=== PATIENT | female | born 1990 | race Two or more races ===

== ENCOUNTER 2016-05-31 12:57 | Emergency (ER) | payer MEDICAID ==
--- NOTE | 2016-05-31 14:18 | ER Document Report ---
ED GI/ - General Chief Complaint: Low Back Pain Stated Complaint: LOW BACK PAIN Time seen by provider: 14:13 Mode of Arrival: Ambulatory Information source: Patient Notes: 25-year-old female presents to ED for complaint of lower back pain radiating down her right leg with right lower quadrant abdominal pain today. She states she was recently treated for a UTI with 150 mg of Diflucan with no relief from symptoms. She was also told that she had a ruptured right ovarian cyst, and a left ovarian cyst. TRAVEL OUTSIDE OF THE [place] IN LAST 30 DAYS: No - HPI Patient complains to provider of: Pelvic pain, Other - Low back Onset: Last week Timing/Duration: Intermittent Quality of pain: Sharp Severity at maximum: Severe Severity in ED: Severe Pain Level: 5 Location: RLQ, Low back, Pelvis Vaginal bleeding (Compared to normal period): None LMP: 05/10/2016 Associated symptoms: Radiates to back. denies: Fever, Nausea, Urinary hesitancy , Urinary frequency, Urinary retention, Urinary urgency, Vaginal discharge Exacerbated by: Movement Relieved by: Denies Similar symptoms previously: Yes Recently seen / treated by doctor: Yes - Related Data Allergies/Adverse Reactions: No Known Allergies Allergy (Verified 05/31/16 13:35) Past Medical History - General Information source: Patient - Social History Smoking Status: Current Every Day Smoker Cigarette use (# per day): Yes - 3 cigarettes a Chew tobacco use (# tins/day): No Smoking Education Provided: Yes - less than 2 minutes Frequency of alcohol use: None Drug Abuse: None Occupation: none Lives with: Spouse/Significant other - With child Family History: Reviewed & Not Pertinent Patient has suicidal ideation: No Patient has homicidal ideation: No - Past Medical History Cardiac Medical History: Reports: None Pulmonary Medical History: Reports: None EENT Medical History: Reports: None Neurological Medical History: Reports: None Endocrine Medical History: Reports: None Renal/ Medical History: Reports: Hx Ovarian Cysts Malignancy Medical History: Reports: None GI Medical History: Reports: None Musculoskeltal Medical History: Reports None Skin Medical History: Reports None Psychiatric Medical History: Reports: None Traumatic Medical History: Reports: None Infectious Medical History: Reports: None Past Surgical History: Reports: Hx Section - Immunizations Immunizations up to date: Yes Review of Systems - Review of Systems Constitutional: No symptoms reported EENT: No symptoms reported Cardiovascular: No symptoms reported Respiratory: No symptoms reported Gastrointestinal: Abdominal pain - Right flank lower quadrant and pelvic pain radiate around to the back Genitourinary: No symptoms reported Female Genitourinary: No symptoms reported Musculoskeletal: Back pain - Low back pain bilateral radiating down right leg, Muscle pain Skin: No symptoms reported Hematologic/Lymphatic: No symptoms reported Neurological/Psychological: No symptoms reported -: Yes All other systems reviewed and negative Physical Exam - Vital signs Vitals: Temp Pulse Resp BP Pulse Ox 98.3 F 93 16 146/75 H 99 05/31/16 13:39 05/31/16 13:39 05/31/16 13:39 05/31/16 13:39 05/31/16 13:39 Interpretation: Normal - General General appearance: Appears well, Alert - HEENT Head: Normocephalic, Atraumatic Eyes: Normal Pupils: PERRL - Respiratory Respiratory status: No respiratory distress Chest status: Nontender Breath sounds: Normal Chest palpation: Normal - Cardiovascular Rhythm: Regular Heart sounds: Normal auscultation Murmur: No - Abdominal Inspection: Normal Distension: No distension Bowel sounds: Normal Tenderness: Tender - Mild tenderness to right lower quadrant more pain to the right pelvic Organomegaly: No organomegaly - Back Back: Normal, Tender. No: Deformity/step-off, CVA tenderness, Vertebra tenderness, Scars, Scoliosis, Wounds, Other - Extremities General upper extremity: Normal inspection, Nontender, Normal color, Normal ROM , Normal temperature General lower extremity: Normal inspection, Nontender, Normal color, Normal ROM , Normal temperature, Normal weight bearing. No: Lina's sign - Neurological Neuro grossly intact: Yes Cognition: Normal Orientation: AAOx4 [place] Coma Scale Eye Opening: Spontaneous Qamar Coma Scale Verbal: Oriented [place] Coma Scale Motor: Obeys Commands [place] Coma Scale Total: 15 Speech: Normal Motor strength normal: LUE, RUE, LLE, RLE Sensory: Normal - Psychological Associated symptoms: Normal affect, Normal mood - Skin Skin Temperature: Warm Skin Moisture: Dry Skin Color: Normal Course - Re-evaluation Re-evalutation: 05/31/16 16:24 25-year-old female presented to ED for low back pain radiating down the right leg across the buttocks. The x-rays are negative she also complained of flank pain in her urine is negative. Have discussed use of ibuprofen back exercises any hot and cold packs. We will discharge home with a dispense pack of no code and have her follow-up with her primary doctor for any continued pain or increase in pain. - Vital Signs Vital signs: Temp Pulse Resp BP Pulse Ox 98.3 F 87 18 138/70 H 100 05/31/16 16:55 05/31/16 16:55 05/31/16 16:55 05/31/16 16:55 05/31/16 16:55 - Diagnostic Test Radiology reviewed: Image reviewed, Reports reviewed Discharge - Discharge Clinical Impression: Flank pain Back pain Qualifiers: Back pain location: low back pain Chronicity: unspecified Back pain laterality : bilateral Sciatica presence: with sciatica Sciatica laterality: sciatica of right side Qualified Code(s): M54.41 - Lumbago with sciatica, right side Condition: Stable Disposition: HOME, SELF-CARE Instructions: Stretching Exercises for the Back ([facility]), Family Physicians / Practices Additional Instructions: LOW BACK PAIN: Three out of every four people will have an episode of disabling back pain during their lifetime. Most commonly the pain is due to straining of the muscles and ligaments in the low back. Usual treatment includes: (1) Rest on a firm surface. Avoid lying on your stomach. (2) Ice pack the painful area. After a few days, gentle heat may be used intermittently to relax the area, or ice packs can be continued. (3) Medication may be needed -- muscle relaxers and antiinflammatory medicines are commonly used. (4) As the back improves, exercises are prescribed to strengthen the back and abdominal muscles. Your doctor will advise you on the proper care for your back at each stage in your recovery. You may be better in a few days -- or healing may take several weeks. If new symptoms of a "herniated disc" (radiation of pain, numbness, or tingling down the back of the leg or weakness in the leg) occur, you should be re-examined. Further testing may be necessary. Flank Pain We weren't able to prove an exact cause for your flank pain. Pain in the flank can be caused by a muscle strain or spasm. Sometimes a kidney stone causes pain, but can't be found on our tests. Infection in the kidney should be evident on a urine test. Early shingles can occasionally cause flank pain, without the rash that proves the diagnosis. On rare occasions, disease of the pancreas, aorta, spleen, or colon can create pain in the flank. At this time, there's no evidence of a dangerous condition, and it seems safe for you to be at home. If the pain goes away and does not come back, no further testing will be needed. If pain persists, or becomes more severe, we may need to repeat some tests or order additional new testing. Blood in the urine, urgency to urinate frequently, and pain that radiates to the groin can indicate a kidney stone. Fever may mean that the pain is due to infection, either of the kidney or the colon (diverticulitis). If your pain is early shingles, you should develop an eruption of blisters in the painful area within a few days. Call the doctor or return if you have pain that is spreading or becoming more severe, pain that does not resolve with time, fever, or any other new symptoms. ORAL NARCOTIC MEDICATION: You have been given a dispense pack for pain control. This medication is a narcotic. It's best taken with food, as nausea can result if taken on an empty stomach. Don't operate machinery or drive within six hours of taking this medication. Do not combine this medicine with alcohol, or with any medication which can cause sedation (such as cold tablets or sleeping pills) unless you get permission from the physician. Narcotics tend to cause constipation. If possible, drink plenty of fluids and eat a diet high in fiber and fruits. Please be aware that prescription narcotics also have the potential for abuse. People become addicted to these medications because of the general sense of wellbeing that they induce. This feeling along with a significant reduction in tension, anxiety, and aggression provides a stimulating seductive quality to these drugs. Once your pain is under control, we encourage you to discard your unused narcotics. Ibuprofen Ibuprofen is an excellent, safe drug for pain control. In addition, it has potent antiinflammatory effects which are beneficial, especially in the treatment of injuries, arthritis, or tendonitis. It's best to take ibuprofen with food. Persons with ulcer disease or allergy to aspirin should notify their physician of this before taking ibuprofen. Take the medication exactly as prescribed. Don't take additional doses unless instructed to do so by your doctor. If you develop wheezing, shortness of breath, hives, faintness, stomach pain, vomiting, or dark black stools, return for re-evaluation at once. ICE PACKS: Apply ice packs frequently against the painful area. Many different schedules are recommended, such as "20 minutes on, 20 minutes off" or "one hour ice, two hours rest." If you need to work, you may need to go longer between ice treatments. You should plan to have the area ice packed AT LEAST one fourth of the time. The ice should be applied over the wrap, tape, or splint, or over a layer of cloth -- not directly against the skin. Some ice bags have a built-in cloth and can be put directly on the skin. WARM PACKS: After approximately two days, apply gentle heat (such as a heating pad or hot water bottle) for about 20 to 30 minutes about every two hours -- at least four times daily. Warmth and elevation will help you make a more rapid recovery , and will ease the pain considerably. Do not use HOT heat, and never apply heat for longer than 30 minutes. The continuous heat can invisibly damage skin and muscles -- even when no burn is seen on the surface. Damaged muscles can make you MORE sore. FOLLOW-UP CARE: If you have been referred to a physician for follow-up care, call the physician s office for an appointment as you were instructed or within the next two days. If you experience worsening or a significant change in your symptoms, notify the physician immediately or return to the Emergency Department at any time for re-evaluation. Forms: Elevated Blood Pressure, Smoking Cessation Education
[2016-05-31 15:06] LABS: APPEARANCE,URINE SLIGHTLY-CLOUDY; BILIRUBIN,URINE NEGATIVE (NEGATIVE); GLUCOSE, URINE NEGATIVE (NEGATIVE); KETONES,URINE NEGATIVE (NEGATIVE); LEUKOCYTE ESTERASE,URINE NEGATIVE (NEGATIVE); NITRITE,URINE NEGATIVE (NEGATIVE); PROTEIN,URINE NEGATIVE (NEGATIVE); URINE SPECIFIC GRAVITY 1.014; UROBILINOGEN,URINE NEGATIVE mg/dL (<2.0)
[2016-05-31] MEDS ORDERED: HYDROCODONE/ACETAMINOPHEN 5-325 MG 6 TAB/DSPK PO PRN (16:28)
[2016-05-31] MEDS ORDERED: DEXAMETHASONE SOD PHOS INJ 10 MG/1 ML VIAL IM ONE (16:29)
[2016-05-31] MEDS ORDERED: KETOROLAC TROMETHAMINE 60 MG/2 ML SDV IM ONE (16:29)
[2016-05-31 18:56] VITALS: BP 138/70
== END 2016-05-31 16:58 | disposition home or self-care (01) ==
LOC: ER 12:57
DX: M54.41 Lumbago with sciatica, right side (principal); R10.9 Unspecified abdominal pain; M54.5 Low back pain; M79.604 Pain in right leg; R10.31 Right lower quadrant pain; R10.2 Pelvic and perineal pain; F17.210 Nicotine dependence, cigarettes, uncomplicated
CPT/HCPCS: 99284; 96372; 81025; 81001; 72110; J1885; J1100

== ENCOUNTER 2017-03-02 11:33 | Emergency (ER) | payer MEDICAID ==
--- NOTE | 2017-03-02 12:55 | ER Document Report ---
ED Flu Like - General Chief Complaint: Flu Symptoms Stated Complaint: FLU LIKE SYMPTOMS Time Seen by Provider: 03/02/17 12:39 Notes: flu like symptoms x 2 days TRAVEL OUTSIDE OF THE [place] IN LAST 30 DAYS: No - HPI Onset: Yesterday Timing/Duration: Sudden Quality of pain: [place] exposure: No Associated symptoms: Body/muscle aches, Chills, Nonproductive cough, Fever Similar symptoms previously: No - Related Data Allergies/Adverse Reactions: No Known Allergies Allergy (Verified 03/02/17 11:36) Past Medical History - General Information source: Patient - Social History Smoking Status: Current Every Day Smoker Chew tobacco use (# tins/day): No Frequency of alcohol use: None Drug Abuse: None Lives with: Family Family History: Reviewed & Not Pertinent Patient has suicidal ideation: No Patient has homicidal ideation: No - Medical History Medical History: Negative Renal/ Medical History: Reports: Hx Ovarian Cysts. Denies: Hx Peritoneal Dialysis Past Surgical History: Reports: Hx Section - Immunizations Immunizations up to date: Yes Hx Diphtheria, Pertussis, Tetanus Vaccination: No Review of Systems - Review of Systems Constitutional: No symptoms reported EENT: No symptoms reported Cardiovascular: No symptoms reported Respiratory: No symptoms reported Gastrointestinal: No symptoms reported Genitourinary: No symptoms reported Female Genitourinary: No symptoms reported Musculoskeletal: No symptoms reported Skin: No symptoms reported Hematologic/Lymphatic: No symptoms reported Neurological/Psychological: No symptoms reported Physical Exam - Vital signs Interpretation: Tachycardic, Febrile - General General appearance: Alert In distress: None - mildly ill looking - HEENT Head: Normocephalic, Atraumatic Eyes: Normal Pupils: PERRL - Respiratory Respiratory status: No respiratory distress Chest status: Nontender Breath sounds: Normal Chest palpation: Normal - Cardiovascular Rhythm: Regular Heart sounds: Normal auscultation Murmur: No - Abdominal Inspection: Normal Distension: No distension Bowel sounds: Normal Tenderness: Nontender Organomegaly: No organomegaly - Back Back: Normal, Nontender - Extremities General upper extremity: Normal inspection, Nontender, Normal color, Normal ROM , Normal temperature General lower extremity: Normal inspection, Nontender, Normal color, Normal ROM , Normal temperature, Normal weight bearing. No: Lina's sign - Neurological Neuro grossly intact: Yes Cognition: Normal Orientation: AAOx4 [place] Coma Scale Eye Opening: Spontaneous Qamar Coma Scale Verbal: Oriented Q[place] Coma Scale Motor: Obeys Commands [place] Coma Scale Total: 15 Speech: Normal Motor strength normal: LUE, RUE, LLE, RLE Sensory: Normal - Psychological Associated symptoms: Normal affect, Normal mood - Skin Skin Temperature: Warm Skin Moisture: Dry Skin Color: Normal Course - Re-evaluation Re-evalutation: 03/02/17 12:51 H&P c/w flu like illness. no co-morbidities. no s/s sepsis. no respirtory distress. pt stable for discharge Discharge - Discharge Clinical Impression: Flu-like symptoms Condition: Stable Disposition: HOME, SELF-CARE Instructions: Influenza ([facility]) [id number], Acetaminophen Additional Instructions: rest and hydrate social isolation while sick good hand hygiene tamiflu as prescribed follow up with primary care if symptoms persist return to ER for any worsening Prescriptions: Oseltamivir Phosphate [Tamiflu] 75 mg PO BID #10 capsule Forms: Return to Work
[2017-03-02 13:11] VITALS: BP 126/74
== END 2017-03-02 13:11 | disposition home or self-care (01) ==
LOC: ER 11:33
DX: M79.1 Myalgia (principal); R50.9 Fever, unspecified; R05 Cough; F17.200 Nicotine dependence, unspecified, uncomplicated
CPT/HCPCS: 99283

== ENCOUNTER 2017-03-04 08:45 | Emergency (ER) | payer MEDICAID ==
--- NOTE | 2017-03-04 10:06 | RADIOLOGY REPORT (SQ) ---
EXAM DESCRIPTION: CHEST PA/LAT COMPLETED DATE/TIME: 03/04/2017 9:58 am REASON FOR STUDY: cough fever COMPARISON: None. EXAM PARAMETERS: NUMBER OF VIEWS: two views TECHNIQUE: Digital Frontal and Lateral radiographic views of the chest acquired. RADIATION DOSE: NA LIMITATIONS: none FINDINGS: LUNGS AND PLEURA: No opacities, masses or pneumothorax. No pleural effusion. MEDIASTINUM AND HILAR STRUCTURES: No masses or contour abnormalities. HEART AND VASCULAR STRUCTURES: Heart normal size. No evidence for failure. BONES: No acute findings. HARDWARE: None in the chest. OTHER: No other significant finding. IMPRESSION: NO SIGNIFICANT RADIOGRAPHIC FINDING IN THE CHEST. TECHNICAL DOCUMENTATION: JOB ID: [id number] [employer]- All Rights Reserved
--- NOTE | 2017-03-04 10:44 | ER Document Report ---
ED Pediatric Illness - General Chief Complaint: Congestion Stated Complaint: CONGESTION Time Seen by Provider: 03/04/17 09:18 Mode of Arrival: Ambulatory Information source: Patient TRAVEL OUTSIDE OF THE [place] IN LAST 30 DAYS: No - Related Data Allergies/Adverse Reactions: No Known Allergies Allergy (Verified 03/04/17 08:45) Past Medical History - Social History Smoking Status: Never Smoker Chew tobacco use (# tins/day): No Frequency of alcohol use: None Drug Abuse: None Family History: Reviewed & Not Pertinent Patient has suicidal ideation: No Patient has homicidal ideation: No Renal/ Medical History: Reports: Hx Ovarian Cysts. Denies: Hx Peritoneal Dialysis Past Surgical History: Reports: Hx Section - Immunizations Immunizations up to date: Yes Hx Diphtheria, Pertussis, Tetanus Vaccination: No Physical Exam - Vital signs Vitals: Temp Pulse Resp BP Pulse Ox 98.4 F 97 16 119/76 98 03/04/17 08:56 03/04/17 08:56 03/04/17 08:56 03/04/17 08:56 03/04/17 08:56 Course - Vital Signs Vital signs: Temp Pulse Resp BP Pulse Ox 98.4 F 97 16 119/76 98 03/04/17 08:56 03/04/17 08:56 03/04/17 08:56 03/04/17 08:56 03/04/17 08:56
[2017-03-04 10:45] LABS: A TYPE INFLUENZA AG NEGATIVE (NEGATIVE); B INFLUENZA AG NEGATIVE (NEGATIVE)
--- NOTE | 2017-03-04 10:52 | ER Document Report ---
ED Flu Like - General Chief Complaint: Congestion Stated Complaint: CONGESTION Time Seen by Provider: 03/04/17 09:18 Mode of Arrival: Ambulatory Information source: Patient Notes: 26-year-old female presented to ED for cough and cold flu symptoms for a week. She states 2 days ago she was told she had the flu but she was not tested. She states she has had a lot of congestion and nasal drainage. She states she felt like she had the temperature but has not taken her temperature. TRAVEL OUTSIDE OF THE [place] IN LAST 30 DAYS: No - HPI Onset: Last week Timing/Duration: Intermittent Quality of pain: Achy Severity: Moderate Pain Level: 3 CO exposure: No Associated symptoms: Body/muscle aches, Chills, Nonproductive cough, Fever, Rhinnorhea, Sinus pain/drainage, Sore throat Similar symptoms previously: Yes Recently seen / treated by doctor: Yes - Related Data Allergies/Adverse Reactions: No Known Allergies Allergy (Verified 03/04/17 08:45) Past Medical History - General Information source: Patient - Social History Smoking Status: Current Every Day Smoker Cigarette use (# per day): Yes - 2 cigarettes a day Chew tobacco use (# tins/day): No Smoking Education Provided: Yes - 4 minutes Frequency of alcohol use: None Drug Abuse: None Occupation: [employer] Lives with: Family Family History: Arthritis, CAD, DM, Hyperlipidemia, Hypertension. denies: COPD , CVA, Malignancy, Thyroid Disfunction Patient has suicidal ideation: No Patient has homicidal ideation: No - Past Medical History Cardiac Medical History: Reports: None Pulmonary Medical History: Reports: None EENT Medical History: Reports: None Neurological Medical History: Reports: None Endocrine Medical History: Reports: None Renal/ Medical History: Reports: Hx Ovarian Cysts Malignancy Medical History: Reports: None GI Medical History: Reports: None Musculoskeltal Medical History: Reports None Skin Medical History: Reports None Psychiatric Medical History: Reports: None Traumatic Medical History: Reports: None Infectious Medical History: Reports: None Past Surgical History: Reports: Hx Section - Immunizations Immunizations up to date: Yes Hx Diphtheria, Pertussis, Tetanus Vaccination: No Review of Systems - Review of Systems Constitutional: Fever, Recent illness EENT: Nose congestion, Nose discharge, Sinus pressure, Sinus discharge, Throat pain Cardiovascular: No symptoms reported Respiratory: Cough Gastrointestinal: No symptoms reported Genitourinary: No symptoms reported Female Genitourinary: No symptoms reported Musculoskeletal: No symptoms reported Skin: No symptoms reported Hematologic/Lymphatic: No symptoms reported Neurological/Psychological: No symptoms reported -: Yes All other systems reviewed and negative Physical Exam - Vital signs Vitals: Temp Pulse Resp BP Pulse Ox 98.4 F 97 16 119/76 98 03/04/17 08:56 03/04/17 08:56 03/04/17 08:56 03/04/17 08:56 03/04/17 08:56 Interpretation: Normal - General General appearance: Appears well, Alert - HEENT Head: Normocephalic, Atraumatic Eyes: Normal Pupils: PERRL Ears: Normal External canal: Normal Tympanic membrane: Normal Sinus: Normal Nasal: Purulent discharge, Swelling Mouth/Lips: Normal Mucous membranes: Normal Pharynx: Post nasal drainage Neck: Normal - Respiratory Respiratory status: No respiratory distress Chest status: Nontender Breath sounds: Nonproductive cough Chest palpation: Normal - Cardiovascular Rhythm: Regular Heart sounds: Normal auscultation Murmur: No - Abdominal Inspection: Normal Distension: No distension Bowel sounds: Normal Tenderness: Nontender Organomegaly: No organomegaly - Back Back: Normal, Nontender - Extremities General upper extremity: Normal inspection, Nontender, Normal color, Normal ROM , Normal temperature General lower extremity: Normal inspection, Nontender, Normal color, Normal ROM , Normal temperature, Normal weight bearing. No: Lina's sign - Neurological Neuro grossly intact: Yes Cognition: Normal Orientation: AAOx4 [place] Coma Scale Eye Opening: Spontaneous [place] Coma Scale Verbal: Oriented [place] Coma Scale Motor: Obeys Commands [place] Coma Scale Total: 15 Speech: Normal Motor strength normal: LUE, RUE, LLE, RLE Sensory: Normal - Psychological Associated symptoms: Normal affect, Normal mood - Skin Skin Temperature: Warm Skin Moisture: Dry Skin Color: Normal Course - Re-evaluation Re-evalutation: 03/04/17 11:11 Assessment consistent with an upper respiratory infection. Chest x-ray and flu swabs are negative. Patient was discharged home with instructions for an upper respiratory infection. - Vital Signs Vital signs: Temp Pulse Resp BP Pulse Ox 98.6 F 66 16 113/71 98 03/04/17 11:26 03/04/17 11:26 03/04/17 11:26 03/04/17 11:26 03/04/17 11:26 Discharge - Discharge Clinical Impression: Flu-like symptoms Condition: Stable Disposition: HOME, SELF-CARE Instructions: Family Physicians / Practices Additional Instructions: UPPER RESPIRATORY ILLNESS: You have a viral infection of the respiratory passages -- a "cold." This common infection causes nasal congestion, drainage, and often sore throat and cough. It is highly contagious. The disease usually lasts about 10 to 14 days. There is no "cure" for the viral infection -- it must run its course. If there is a complication, such as bacterial infection in the nose, sinuses, middle ear, or bronchial tubes, antibiotics may be required. The antibiotics won't affect the virus. Drink plenty of fluids. A humidifier may help. An expectorant medication or decongestant may make you more comfortable. Use acetaminophen or ibuprofen for fever or aches. See the doctor if fever persists over two days, if there is any significant worsening of your symptoms, or if you simply fail to improve as expected. DECONGESTANT MEDICATION: A decongestant medicine has been prescribed. Often this medicine is combined in the same tablet with an antihistamine or expectorant. This type of medicine is helpful in treating a bad cold or sinus condition, as well as in treatment of the nasal congestion of hay fever. It is not of much benefit for lung infections. Decongestant medicines are related to stimulants. They can cause an increase in blood pressure and heart rate. Persons with heart disease and high blood pressure should not take decongestants without discussing this with the physician. If you develop palpitations, chest pain, headache, or tremors, stop the medicine and consult your physician. Viral Syndrome The physician has diagnosed a viral infection. Viruses not only cause "colds," but can cause many different symptoms including generalized aching, fever, headache, cough, diarrhea, nausea, vomiting, and fatigue. The treatment, for the most part, is simply relief of symptoms. This means that antibiotics are usually not given. Rest, fluids, pain medications and, occasionally, medication for the specific symptoms that are most bothersome will be prescribed. Use good handwashing to avoid passing the virus to others. Shared toys should be cleaned with disinfectant. Clean the toilets, sinks, and counter surfaces in bathrooms. Launder clothing in hot water. Contact the physician if you develop any new or unusual symptoms such as severe headache, stiff neck, high fever, chest pain, productive cough, or shortness of breath. You should be rechecked if you don't see marked improvement within seven to 10 days. COUGH-SUPPRESSANT & EXPECTORANT MEDICATION: You are to use a cough medication as needed for relief of symptoms. This medicine is a combination of an expectorant (to make the mucous thinner and more easily "coughed up") and a cough suppressant (to reduce the frequency of coughing). The cough-suppressant medicine is related to narcotics. You may experience mild nausea and sleepiness. Some patients who are very sensitive to narcotics may have stomach pain from this medicine. Taking the medicine with food reduces these side effects. Do not drive or work with machinery until you know how this medicine affects you. The expectorant should have no side effects. Iodine-containing expectorants (such as organidin) should not be taken by persons with active thyroid disease unless approved by your doctor. Call the doctor if you develop shortness of breath, hives, rash, itching, lightheadedness, or severe nausea and vomiting. USE OF ACETAMINOPHEN (Tylenol): Acetaminophen may be taken for pain relief or fever control. It's much safer than aspirin, offering a wider range of "safe" dosages. It is safe during . Some brand names are Tylenol, Panadol, Datril, Anacin 3, Tempra, and Liquiprin. Acetaminophen can be repeated every four hours. The following are maximum recommended dosages: >89 pounds or adults 650 mg to 900 mg Acetaminophen can be repeated every four hours. Maximum dose not to exceed 4000 mg a day. SMOKING: If you smoke, you should stop smoking. The tar and chemicals in cigarette smoke are harmful. Smoking has been shown to cause: emphysema chronic bronchitis lung cancer mouth and throat cancer stomach and pancreas cancer premature aging defects In addition, smoking increases ear and lung infections in children of smokers. FOLLOW-UP CARE: If you have been referred to a physician for follow-up care, call the physician s office for an appointment as you were instructed or within the next two days. If you experience worsening or a significant change in your symptoms, notify the physician immediately or return to the Emergency Department at any time for re-evaluation. Prescriptions: Ondansetron [Zofran Odt 4 mg Tablet] 1 tab PO Q6H #15 tab.rapdis Forms: Smoking Cessation Education, Return to Work
[2017-03-04 11:27] VITALS: BP 113/71
== END 2017-03-04 11:29 | disposition home or self-care (01) ==
LOC: ER 08:45
DX: R09.81 Nasal congestion (principal); R09.89 Other specified symptoms and signs involving the circulatory and respiratory systems; F17.210 Nicotine dependence, cigarettes, uncomplicated
CPT/HCPCS: 71046; 87804; 99283

== ENCOUNTER 2017-03-14 17:19 | Emergency (ER) | payer MEDICAID ==
--- NOTE | 2017-03-14 18:16 | ER Document Report ---
ED Medical Screen (RME) - General Chief Complaint: Abdominal Pain Stated Complaint: BACK/ABDOMINAL PAIN Time Seen by Provider: 03/14/17 18:10 TRAVEL OUTSIDE OF THE [place] IN LAST 30 DAYS: No - HPI Notes: 03/14/17 18:11 Patient is a 26-year-old female with no significant past medical history presents ED complaining of right lower quadrant abdominal pain 5 days. Patient states that the pain does not radiate and has been relatively steady over the last 5 days with intermittent periods of increased pain. Patient states that on occasion she will have some pain in the left lower quadrant, but is primarily to the right. Patient has not noticed any worsening pain with walking or jumping. Patient has had intermittent nausea without any vomiting. She still eating and drinking without any difficulties. She is urinating normally and having normal bowel movements. Patient states that she also does have associated right lower back pain that does not radiate around to her groin. patient is not aware of any injury or recent trauma. She denies any injections to her lower back or IV drug use. Pt has also had white vaginal discharge x months. Patient denies any drug allergies. Denies any headache, fever, neck pain, URI, sore throat, chest pain, palpitations, syncope, cough, shortness of breath, wheeze, dyspnea, vomiting/diarrhea, urinary retention, dysuria, hematuria, loss of control of bowel or bladder, numbness/tingling, saddle anesthesia, muscle paralysis/weakness, or rash. Pt was eval'd today by her PCM who sent her to the ED for evaluation. Pt has remained NPO since breakfast this morning. I have treated and performed a rapid initial assessment of this patient. A comprehensive ED assessment and evaluation of the patient, analysis of test results and completion of medical decision making process will be conducted by additional ED providers. 03/14/17 18:16 - Related Data Allergies/Adverse Reactions: No Known Allergies Allergy (Verified 03/14/17 17:22) Past Medical History Renal/ Medical History: Reports: Hx Ovarian Cysts. Denies: Hx Peritoneal Dialysis Past Surgical History: Reports: Hx Section - Immunizations Immunizations up to date: Yes Hx Diphtheria, Pertussis, Tetanus Vaccination: No Physical Exam - Vital signs Vitals: Temp Pulse Resp BP Pulse Ox 98.7 F 90 18 124/71 100 03/14/17 17:26 03/14/17 17:26 03/14/17 17:26 03/14/17 17:26 03/14/17 17:26 - Respiratory Respiratory status: No respiratory distress Breath sounds: Normal - Cardiovascular Rhythm: Regular Heart sounds: Normal auscultation - Abdominal Inspection: Normal Distension: No distension Bowel sounds: Normal Tenderness: Tender - RLQ Course - Vital Signs Vital signs: Temp Pulse Resp BP Pulse Ox 98.7 F 90 18 124/71 100 03/14/17 17:26 03/14/17 17:26 03/14/17 17:26 03/14/17 17:26 03/14/17 17:26
[2017-03-14 20:26] LABS: APPEARANCE,URINE SLIGHTLY-CLOUDY; BILIRUBIN,URINE NEGATIVE (NEGATIVE); COLOR,URINE YELLOW; GLUCOSE, URINE NEGATIVE (NEGATIVE); KETONES,URINE NEGATIVE (NEGATIVE); LEUKOCYTE ESTERASE,URINE TRACE (NEGATIVE); NITRITE,URINE NEGATIVE (NEGATIVE); PROTEIN,URINE NEGATIVE (NEGATIVE); URINE SPECIFIC GRAVITY 1.017; UROBILINOGEN,URINE NEGATIVE mg/dL (<2.0)
[2017-03-14 20:26] LABS: ABSOLUTE BASOPHILS # (AUTO) 0.1 10^3/uL (0.0-0.2); ABSOLUTE EOSINOPHILS # (AUTO) 0.1 10^3/uL (0.0-0.6); ABSOLUTE LYMPHOCYTES (AUTO) 1.8 10^3/uL (0.5-4.7); ABSOLUTE MONOCYTES (AUTO) 0.5 10^3/uL (0.1-1.4); ABSOLUTE NEUT (AUTO) 5.9 10^3/uL (1.7-8.2); BASOPHILS % (AUTO) 0.8 % (0-2); HEMOGLOBIN 14.4 g/dL (12.0-15.5); LYMPHOCYTES % (AUTO) 22.1 % (13-45); MEAN CORPUSCULAR HEMOGLOBIN 30.1 pg (27.0-33.4); MEAN CORPUSCULAR HGB CONC 34.2 g/dL (32.0-36.0); MEAN CORPUSCULAR VOLUME 88 fl (80-97); MONOCYTES % (AUTO) 5.5 % (3-13); PLATELET COUNT 560 10^3/uL (150-450); RED BLOOD COUNT 4.78 10^6/uL (3.72-5.28); RED CELL DISTRIBUTION WIDTH 14.1 % (11.5-14.0); SEGMENTED NEUTROPHILS % (AUTO) 70.6 % (42-78); TOTAL CELLS COUNTED % (AUTO) 100 %; WHITE BLOOD COUNT 8.3 10^3/uL (4.0-10.5)
[2017-03-14 20:44] LABS: ALANINE AMINOTRANSFERASE 30 U/L (9-52); ALBUMIN 4.6 g/dL (3.5-5.0); ALKALINE PHOSPHATASE 57 U/L (38-126); ANION GAP 10 (5-19); ASPARTATE AMINO TRANSFERASE 25 U/L (14-36); BILIRUBIN,DIRECT 0.1 mg/dL (0.0-0.4); BILIRUBIN,TOTAL 0.5 mg/dL (0.2-1.3); BLOOD UREA NITROGEN 12 mg/dL (7-20); CALCIUM 10.2 mg/dL (8.4-10.2); CARBON DIOXIDE 23 mmol/L (22-30); CHLORIDE 106 mmol/L (98-107); GLUCOSE 77 mg/dL (75-110); POTASSIUM 4.6 mmol/L (3.6-5.0); SODIUM 139.4 mmol/L (137-145); TOTAL PROTEIN 7.3 g/dL (6.3-8.2)
[2017-03-15] MEDS ORDERED: CEFTRIAXONE INJ 250 MG VIAL IV ONE (00:06)
[2017-03-15] MEDS ORDERED: KETOROLAC TROMETHAMINE 60 MG/2 ML SDV IV ONE (00:06)
[2017-03-15] MEDS ORDERED: AZITHROMYCIN 250 MG TABLET PO ONE (00:06)
--- NOTE | 2017-03-15 00:10 | ER Document Report ---
ED GI/ - General Chief Complaint: Abdominal Pain Stated Complaint: BACK/ABDOMINAL PAIN Time Seen by Provider: 03/14/17 18:10 Mode of Arrival: Ambulatory Information source: Patient TRAVEL OUTSIDE OF THE [place] IN LAST 30 DAYS: No - HPI Patient complains to provider of: Abdominal pain, Vaginal discharge Onset: Last week Notes: 03/15/17 00:08 Patient arrives with complaints of right-sided abdominal pain and low back pain that started approximately 5 days ago. Pain has been constant. It seems to be getting somewhat worse. Nothing in particular seems to make the pain better or worse. The patient's had nausea but denies any vomiting or diarrhea. She denies any dysuria or hematuria. She is complaining of some vaginal discharge. She states her last normal menstrual period was February 04. She denies any flank pain. She denies any chest pain or shortness of breath. No fevers. No rash. No headache, blurred vision, numbness tingling or weakness. She had a prior in the past, she denies any other abdominal surgeries. She denies any headache, blurred vision, numbness, tingling, weakness. She denies any other complaints at this time. - Related Data Allergies/Adverse Reactions: No Known Allergies Allergy (Verified 03/14/17 17:22) Past Medical History - Social History Smoking Status: Unknown if Ever Smoked Family History: Arthritis, CAD, DM, Hyperlipidemia, Hypertension. denies: COPD , CVA, Malignancy, Thyroid Disfunction Renal/ Medical History: Reports: Hx Ovarian Cysts. Denies: Hx Peritoneal Dialysis Past Surgical History: Reports: Hx Section - Immunizations Immunizations up to date: Yes Hx Diphtheria, Pertussis, Tetanus Vaccination: No Review of Systems - Review of Systems -: Yes All other systems reviewed and negative Physical Exam - Vital signs Vitals: Temp Pulse Resp BP Pulse Ox 98.7 F 90 18 124/71 100 03/14/17 17:26 03/14/17 17:26 03/14/17 17:26 03/14/17 17:26 03/14/17 17:26 - Notes Notes: GENERAL: alert, cooperative, nontoxic, no distress. HEAD: normocephalic, atraumatic EYES: conjunctiva pink without discharge, no external redness or swelling. EARS: no external swelling, no external redness NOSE: atraumatic, no external swelling MOUTH/THROAT: mucous membranes moist and pink, posterior pharynx without erythema, swelling, exudate. No trismus or drooling. NECK: soft, supple, full range of motion, no meningismus. CHEST: no distress, lungs clear and equal throughout. No wheezing, rales, rhonchi. CARDIAC: regular rate and rhythm, no murmur, normal capillary refill, normal pulses. No peripheral edema noted. ABDOMEN: Soft, mild tenderness palpation of the lower abdomen. No rebound tenderness or guarding. BACK: full range of motion, no CVA tenderness. EXTREMITIES: full range of motion of all extremities. No redness, no swelling. NEURO: alert and oriented x 3, no focal deficits, full range of motion of all extremities. PYSCH: appropriate mood, affect. Patient is cooperative. SKIN: pink, warm, dry, no rash. : Performed with female nurse at the bedside. No external lesions noted. Cervix is closed. Small amount of white vaginal discharge is present. No cervical motion tenderness. Minimal right and left adnexal tenderness on bimanual exam with no mass. Course - Re-evaluation Re-evalutation: 03/15/17 01:56 Patient is nontoxic appearing with stable vitals. The patient arrives with 5 days of right-sided abdominal pain radiating into her back. She is a benign abdominal exam with minimal tenderness to palpation no guarding or rebound tenderness. She has had no fever. She is afebrile here. Her white blood cell count is normal. Pelvic exam shows some mild adnexal tenderness bilaterally with no purulent drainage from the cervix and no cervical motion tenderness. Patient was treated for gonorrhea and chlamydia here in the emergency department. Those cultures are still pending. Wet prep shows possible actual vaginosis which I will treat her with Flagyl for. CT with IV contrast of the abdomen and pelvis shows metallic foreign body within the appendix. There is no dilation of the appendix or inflammation around the appendix concerning for acute appendicitis. I discussed this with the surgeon habitat conservation planner Dr. Olaery, he was given all the information believes that it is fine for this patient to follow-up as an outpatient in the office. Patient has some free fluid within the pelvis likely secondary to a recently ruptured ovarian cyst. The patient has a history of this in the past and states that this pain does feel similar to that as well. Patient was given all this information. She will be discharged home with a prescription for Ultram for pain. Instructions to follow -up with surgeon as an outpatient. Follow-up sooner for increasing pain, fever , persistent vomiting, or for any further concerns. The patient's emergency department workup and current diagnosis were explained to the patient and or family. Follow-up instructions were provided. Medications if prescribed were discussed. Instructions for when to return to the emergency department including specific worrisome symptoms were discussed with the patient and/or family. The patient is noted to have elevated blood pressure during today's emergency department visit. The patient was informed of this finding. The patient was instructed that this may be related to pre-hypertension and requires further evaluation with a primary care provider. The patient has no hypertensive symptoms at this time. - Vital Signs Vital signs: Temp Pulse Resp BP Pulse Ox 98.7 F 90 18 124/71 100 03/14/17 17:26 03/14/17 17:26 03/14/17 17:26 03/14/17 17:26 03/14/17 17:26 - Laboratory Result Diagrams: 03/14/17 19:35 03/14/17 19:35 Laboratory results interpreted by me: 03/14/17 03/14/17 19:05 19:35 RDW 14.1 H Plt Count 560 H Urine Blood SMALL H Ur Leukocyte Esterase TRACE H - Diagnostic Test Radiology reviewed: Image reviewed, Reports reviewed - Metallic foreign body within the appendix with no other signs of acute appendicitis. Free fluid within the pelvis consistent with possible recent rupture of ovarian cyst. Discharge - Discharge Clinical Impression: Ruptured ovarian cyst Abdominal pain Qualifiers: Abdominal location: right lower quadrant Qualified Code(s): R10.31 - Right lower quadrant pain Condition: Stable Disposition: HOME, SELF-CARE Instructions: Abdominal Pain ([facility]) Additional Instructions: Take medications as prescribed. Follow-up with surgery at the next available appointment. Return the emergency department for increasing pain, high fever, persistent vomiting, or any further concerns. Your blood pressure was elevated during today's visit. Have this rechecked with your doctor. Prescriptions: Tramadol HCl [Ultram 50 mg Tablet] 50 mg PO Q6HP PRN #12 tablet PRN Reason: Diclofenac Sodium [Voltaren 50 Mg Tablet.] 50 mg PO BID #20 tablet. Forms: Elevated Blood Pressure, Smoking Cessation Education Referrals: CORRINA OLEARY MD [ACTIVE STAFF] - Follow up as needed
[2017-03-15 00:19] LABS: T.VAGINALIS (WET MOUNT) NO TRICHOMONAS SEEN; YEAST (WET MOUNT) NO YEAST SEEN
[2017-03-15 00:20] LABS: BACTERIA (WET MOUNT) 4+ BACTERIA SEEN; EPITHELIALS (WET MOUNT) 4+ EPITHELIALS SEEN; RBCS (WET MOUNT) RARE RBCS SEEN; WBCS (WET MOUNT) 3+ WBCS SEEN
--- NOTE | 2017-03-15 01:40 | RADIOLOGY REPORT (SQ) ---
EXAM DESCRIPTION: CT ABDOMEN AND PELVIS WITH CONTRAST CLINICAL HISTORY: right lower quad pain COMPARISON: None Available. TECHNIQUE: CT of the abdomen and pelvis are performed during IV bolus administration of 77.30 mL of Isovue-370. Delayed images obtained. DLP: 785.16 mGycm FINDINGS: Abdomen: The liver has normal size and density. No intrahepatic mass or biliary dilatation. No calcified gallstones. The spleen, pancreas, and adrenal glands are unremarkable. The kidneys have normal size and contour without evidence of solid mass or hydronephrosis. The aorta and IVC have normal caliber and position. The portal vein patent. The proximal visceral and renal arteries are patent. No free intraperitoneal air. The stomach and duodenum have normal course. Pelvis: IUD in the uterus with appropriate orientation. Urinary bladder is unremarkable. Tiny amount of free pelvic fluid is likely physiologic. No dilated loops of large or small bowel. Possible metallic foreign body in the distal tip of the appendix measuring approximately 0.9 x 0.2 cm. No dilation of the appendix or periappendiceal inflammatory change. The visualized lung bases are clear. No destructive bone lesions identified. IMPRESSION: 1. No CT evidence of acute appendicitis. 2. Possible metallic foreign body in the distal portion of the appendix measuring 0.9 x 0.2 cm. Correlation for history of ingested metallic foreign body recommended. 3. Tiny amount of free pelvic fluid is likely physiologic. This exam was performed according to our departmental dose-optimization program, which includes automated exposure control, adjustment of the mA and/or kV according to patient size and/or use of iterative reconstruction technique.
[2017-03-15 01:53] LABS: CHLAM PCR NOT DETECTED (NOT DETECT); GON PCR NOT DETECTED (NOT DETECT)
[2017-03-15 02:19] VITALS: BP 117/75
== END 2017-03-15 02:29 | disposition home or self-care (01) ==
LOC: ER 17:19
DX: N83.201 Unspecified ovarian cyst, right side (principal); T18.4XXA Foreign body in colon, initial encounter; X58.XXXA Exposure to other specified factors, initial encounter; R10.31 Right lower quadrant pain; N93.9 Abnormal uterine and vaginal bleeding, unspecified; M54.5 Low back pain; R11.0 Nausea; R03.0 Elevated blood-pressure reading, without diagnosis of hypertension
CPT/HCPCS: 99284; 96375; 96365; 36415; 87086; 87210; 84702; 85025; 80053; 81001; 87491; 87591; 74177; Q0144; J1885; J0696

== ENCOUNTER 2017-04-05 11:55 | Observation (INO) | payer MEDICAID ==
[~2017-04-05 11:55] MED LIST: DEXAMETHASONE SOD PHOSPHATE INJ 4 MG/1 ML VIAL ONE; GLYCOPYRROLATE INJ 0.4 MG/2 ML VIAL ONE; METOCLOPRAMIDE HCL INJ/PF 10 MG/2 ML SDV ONE; NEOSTIGMINE METHYLSULFATE 10 MG/10 ML VIAL ONE; ONDANSETRON HCL INJ/PF 4 MG/2 ML SDV ONE; ROCURONIUM BROMIDE INJ 50 MG/5 ML VIAL IV ONE
[2017-04-05] MEDS ORDERED: ACETAMINOPHEN 325 MG TABLET PO ONE (13:06)
--- NOTE | 2017-04-05 13:06 | ER Document Report ---
ED Medical Screen (RME) - General Chief Complaint: Pelvic Pain Stated Complaint: BACK PAIN Time Seen by Provider: 04/05/17 12:58 Notes: RME DISCLOSURE I have seen this patient as part of a Rapid Medical Evaluation and, if applicable, placed any initially appropriate orders. The patient will be seen and fully evaluated, including a full history and physical exam, by a provider ( in Main ED or Fast Track) when a room becomes available. 26-year-old female here with complaints of pelvic pain and back pain as well as urinary frequency ongoing for the past few days. She reports that she has had this once before several weeks ago and a CT scan showed an ovarian cyst however she did not have an ultrasound performed. She denies any vaginal bleeding or discharge or dysuria or fevers or chills. She does have some nausea but no vomiting or diarrhea. She has tried taking muscle relaxers for the symptoms. Her last period was March 25. EXAM Mild tenderness palpation in the right lateral suprapubic region No right lower quadrant tenderness No peritoneal signs TRAVEL OUTSIDE OF THE [place] IN LAST 30 DAYS: No - Related Data Allergies/Adverse Reactions: No Known Allergies Allergy (Verified 04/05/17 11:59) Past Medical History - Social History Frequency of alcohol use: None Drug Abuse: None Renal/ Medical History: Reports: Hx Ovarian Cysts. Denies: Hx Peritoneal Dialysis Past Surgical History: Reports: Hx Section - Immunizations Immunizations up to date: Yes Hx Diphtheria, Pertussis, Tetanus Vaccination: No Physical Exam - Vital signs Vitals: Temp Pulse Resp BP Pulse Ox 98.6 F 87 18 167/90 H 99 04/05/17 12:34 04/05/17 12:34 04/05/17 12:34 04/05/17 12:34 04/05/17 12:34 Course - Vital Signs Vital signs: Temp Pulse Resp BP Pulse Ox 98.6 F 87 18 167/90 H 99 04/05/17 12:34 04/05/17 12:34 04/05/17 12:34 04/05/17 12:34 04/05/17 12:34
--- NOTE | 2017-04-05 13:23 | ER Document Report ---
HPI - HPI Patient complains to provider of: Pelvic pain Onset/Duration: Persistent, Worse Quality of pain: Achy Pain Level: 5 Context: Patient presents with right lower pelvic pain for the past 2 months that worsened yesterday. Patient does report some urinary frequency. Patient denies any vaginal bleeding or discharge. Patient denies any significant change in her appetite. Patient states she had a CT scan and it showed that she had a ruptured ovarian cyst. Patient has not followed up with a raw finish mill operator for further evaluation. Associated Symptoms: Other - Right pelvic pain. denies: Fever Relieved by: Denies Similar symptoms previously: Yes Recently seen / treated by doctor: No - ROS ROS below otherwise negative: Yes Systems Reviewed and Negative: Yes All other systems reviewed and negative - CONSTITUTIONAL Constitutional: DENIES: Fever, Chills - GASTROINTESTINAL Gastrointestinal: REPORTS: Abdominal Pain. DENIES: Nausea - URINARY Urinary: REPORTS: Frequency. DENIES: Dysuria - REPRODUCTIVE Reproductive: DENIES: : - MUSCULOSKELETAL Musculoskeletal: REPORTS: Back Pain. DENIES: Extremity pain - DERM Skin Color: Normal Skin Problems: None Past Medical History - General Information source: Patient - Social History Smoking Status: Current Some Day Smoker Frequency of alcohol use: None Drug Abuse: None Occupation: [employer] Lives with: Family Family History: Arthritis, CAD, DM, Hyperlipidemia, Hypertension. denies: COPD , CVA, Malignancy, Thyroid Disfunction Patient has suicidal ideation: No Patient has homicidal ideation: No Renal/ Medical History: Reports: Hx Ovarian Cysts. Denies: Hx Peritoneal Dialysis Past Surgical History: Reports: Hx Section - Immunizations Immunizations up to date: Yes Hx Diphtheria, Pertussis, Tetanus Vaccination: No Vertical Provider Document - CONSTITUTIONAL Agree With Documented VS: Yes Exam Limitations: No Limitations General Appearance: WD/WN, No Apparent Distress - INFECTION CONTROL TRAVEL OUTSIDE OF THE [place] IN LAST 30 DAYS: No - HEENT HEENT: Atraumatic, Normocephalic - NECK Neck: Normal Inspection, Supple - RESPIRATORY Respiratory: Breath Sounds Normal, No Respiratory Distress O2 Sat by Pulse Oximetry: 99 - CARDIOVASCULAR Cardiovascular: Regular Rate, Regular Rhythm, No Murmur - GI/ABDOMEN Gastrointestinal: Abdomen Soft, Abdomen Tender - Right lower pelvic tenderness, No Organomegaly, Normal Bowel Sounds. negative: Abdominal Guarding - REPRODUCTIVE Female Genitalia: CMT. negative: Adnexal Pain-Right, Adnexal Pain-Left - BACK Back: Abnormal Inspection - Right lower lumbar paraspinal tenderness. negative : CVA Tenderness-Right, CVA Tenderness-Left - MUSCULOSKELETAL/EXTREMETIES Musculoskeletal/Extremeties: JOVON AMBROSIO - NEURO Level of Consciousness: Awake, Alert, Appropriate Motor/Sensory: No Motor Deficit - DERM Integumentary: Warm, Dry, No Rash Course - Re-evaluation Re-evalutation: 04/05/17 14:59 On repeat abdominal exam. Patient with tenderness only to right lower inguinal/ pelvic area, no McBurney point tenderness. Patient continues to guard area and walk with a stooped gait 04/05/17 16:[address] Colunga regarding patient's continued right lower pelvic tenderness and right lower back pain. Reviewed patient's previous CT scan performed at the end of last month which showed a metallic foreign body in her appendix. Spoke with patient, patient states that she did swallow the back of her lip piercing. Consulted with surgeon who agrees to come and evaluate patient. 04/05/17 16:17 Dr. Mckenzie valuated patient and plans to take her to the operating room. - Vital Signs Vital signs: Temp Pulse Resp BP Pulse Ox 98.6 F 87 18 167/90 H 99 04/05/17 12:34 04/05/17 12:34 04/05/17 12:34 04/05/17 12:34 04/05/17 12:34 - Laboratory Result Diagrams: 04/05/17 16:30 04/05/17 16:30 - Diagnostic Test Radiology reviewed: Reports reviewed - Reviewed report from today as well as CT report from March 14. Discharge - Discharge Clinical Impression: Pelvic pain, foreign body in appendix Condition: Good Disposition: ADMITTED INPATIENT Admitting Provider: Surgicalist Unit Admitted: Medical Floor
[2017-04-05 13:33] LABS: APPEARANCE,URINE CLEAR; BILIRUBIN,URINE NEGATIVE (NEGATIVE); COLOR,URINE YELLOW; GLUCOSE, URINE NEGATIVE (NEGATIVE); KETONES,URINE NEGATIVE (NEGATIVE); LEUKOCYTE ESTERASE,URINE SMALL (NEGATIVE); NITRITE,URINE NEGATIVE (NEGATIVE); PROTEIN,URINE NEGATIVE (NEGATIVE); URINE SPECIFIC GRAVITY 1.013; UROBILINOGEN,URINE NEGATIVE mg/dL (<2.0)
[2017-04-05 13:56] LABS: BACTERIA (WET MOUNT) 3+ BACTERIA SEEN; EPITHELIALS (WET MOUNT) 3+ EPITHELIALS SEEN; RBCS (WET MOUNT) RARE RBCS SEEN; T.VAGINALIS (WET MOUNT) NO TRICHOMONAS SEEN; WBCS (WET MOUNT) 1+ WBCS SEEN; YEAST (WET MOUNT) YEAST SEEN
[2017-04-05] MEDS ORDERED: LIDOCAINE 1% INJ-PF (10 MG/ML) 30 ML SDV INJ ONE (14:55)
[2017-04-05] MEDS ORDERED: CEFTRIAXONE INJ 250 MG VIAL IM ONE (14:55)
--- NOTE | 2017-04-05 15:17 | RADIOLOGY REPORT (SQ) ---
EXAM DESCRIPTION: U/S NON OB PEL TV W/DOPPLER COMPLETED DATE/TIME: 04/05/2017 2:55 pm REASON FOR STUDY: R lower pelvic pain; eval torsion cyst etc COMPARISON: CT abdomen pelvis 03/14/2017. Some free fluid noted within the cul de sac. LMP 03/25/2009 TECHNIQUE: Dynamic and static grayscale images acquired of the pelvis via transvaginal approach and recorded on PACS. Additional selected color Doppler and spectral images recorded. LIMITATIONS: None. FINDINGS: UTERUS: Contour normal. No mass. ENDOMETRIAL STRIPE: IUD. CERVIX: No nabothian cysts. RIGHT OVARY: No abnormal masses. RIGHT OVARY DOPPLER: Normal arterial vascular flow without evidence for torsion. LEFT OVARY: 2.2 cm left ovarian cyst noted. LEFT OVARY DOPPLER: Normal arterial vascular flow without evidence for torsion. FREE FLUID: None noted. OTHER: No other significant finding. MEASUREMENTS: UTERUS: 8.5 x 5.9 x 3.6 cm. ENDOMETRIAL STRIPE: IUD noted. RIGHT OVARY: 5.0 x 2.0 x 2.6 cm. LEFT OVARY: 4.0 x 2.9 x 2.9 cm IMPRESSION: Nothing acute other than 2.2 cm left ovarian cyst. IUD is noted. TECHNICAL DOCUMENTATION: JOB ID: [id number] [employer]- All Rights Reserved
[2017-04-05 15:23] LABS: CHLAM PCR NOT DETECTED (NOT DETECT); GON PCR NOT DETECTED (NOT DETECT)
[2017-04-05 16:41] LABS: ABSOLUTE BASOPHILS # (AUTO) 0.1 10^3/uL (0.0-0.2); ABSOLUTE EOSINOPHILS # (AUTO) 0.1 10^3/uL (0.0-0.6); ABSOLUTE LYMPHOCYTES (AUTO) 2.2 10^3/uL (0.5-4.7); ABSOLUTE MONOCYTES (AUTO) 0.4 10^3/uL (0.1-1.4); ABSOLUTE NEUT (AUTO) 6.6 10^3/uL (1.7-8.2); BASOPHILS % (AUTO) 0.9 % (0-2); EOSINOPHILS % (AUTO) 1.1 % (0-6); HEMATOCRIT 41.7 % (36.0-47.0); HEMOGLOBIN 14.4 g/dL (12.0-15.5); LYMPHOCYTES % (AUTO) 23.1 % (13-45); MEAN CORPUSCULAR HEMOGLOBIN 30.2 pg (27.0-33.4); MEAN CORPUSCULAR HGB CONC 34.6 g/dL (32.0-36.0); MEAN CORPUSCULAR VOLUME 87 fl (80-97); MONOCYTES % (AUTO) 4.2 % (3-13); PLATELET COUNT 381 10^3/uL (150-450); RED BLOOD COUNT 4.78 10^6/uL (3.72-5.28); RED CELL DISTRIBUTION WIDTH 14.1 % (11.5-14.0); SEGMENTED NEUTROPHILS % (AUTO) 70.7 % (42-78); TOTAL CELLS COUNTED % (AUTO) 100 %; WHITE BLOOD COUNT 9.4 10^3/uL (4.0-10.5)
[2017-04-05 16:58] LABS: ANION GAP 10 (5-19); BLOOD UREA NITROGEN 11 mg/dL (7-20); CALCIUM 9.6 mg/dL (8.4-10.2); CARBON DIOXIDE 22 mmol/L (22-30); CHLORIDE 109 mmol/L (98-107); GLUCOSE 88 mg/dL (75-110); POTASSIUM 4.3 mmol/L (3.6-5.0); SODIUM 140.6 mmol/L (137-145)
[2017-04-05] MEDS ORDERED: FENTANYL CITRATE INJ/PF 100 MCG/2 ML AMPUL ONE ×3 (17:10→17:58)
[2017-04-05] MEDS ORDERED: MIDAZOLAM 2 MG/2 ML INJ ONE ×2 (17:11→17:58)
[2017-04-05] MEDS ORDERED: ACETAMINOPHEN 0 ML IV ONE (17:11)
[2017-04-05] MEDS ORDERED: PROPOFOL INJ 200 MG/20 ML VIAL IV ONE ×2 (17:11→17:58)
[2017-04-05] MEDS ORDERED: HYDROMORPHONE HCL INJ/PF 2 MG/ML AMPULE ONE ×3 (17:12→17:58)
[2017-04-05] MEDS ORDERED: BUPIVACAINE HCL 0.25 % INJ/PF (2.5 MG/1 ML) 30 ML VIAL ONE (17:33)
[2017-04-05] MEDS ORDERED: LIDOCAINE 1% INJ-PF (10 MG/ML) 30 ML SDV ONE (17:33)
[2017-04-05] MEDS ORDERED: EPHEDRINE SULFATE INJ 50 MG/1 ML AMPULE ONE (17:58)
[2017-04-05] MEDS ORDERED: METRONIDAZOLE 500 MG/NS RTU 100 ML IV ONE (18:06)
[2017-04-05] MEDS: FENTANYL CITRATE INJ/PF 100 MCG/2 ML AMPUL ONE ×2 (19:30→19:40)
[2017-04-05] MEDS ORDERED: IBUPROFEN 800 MG TABLET PO PRN (20:09)
[2017-04-05] MEDS ORDERED: METHOCARBAMOL 500 MG TABLET PO PRN (20:09)
--- NOTE | 2017-04-05 20:17 | PDOC H&P ---
History of Present Illness Admission Date/PCP: 04/05/17 16:53 History of Present Illness: JAMILA BALL is a 26 year old female with right pelvic pain radiating to the back for 2 months now. She had a CT abdomen that revealed a foreign body in the appendix tip 4 weeks ago. Yesterday night the pain got worse and she presented to the ER. She report no fever, nausea or vomiting. No pathologic adnexal masses on US. She says she had accidentally swallowed a tongue piercing she had after it came loose. Past Surgical History Past Surgical History: Reports: Section Social History Smoking Status: Current Some Day Smoker - Advance Directive Resuscitation Status: Full Code Family History Family History: Arthritis, CAD, DM, Hyperlipidemia, Hypertension. denies: COPD , CVA, Malignancy, Thyroid Disfunction Parental Family History Reviewed: No Children Family History Reviewed: Unknown Sibling(s) Family History Reviewed.: Unknown Medication/Allergy Home Medications: Ibuprofen [Motrin 800 mg Tablet] 800 mg PO TIDP PRN 04/05/17 Methocarbamol [Robaxin 500 mg Tablet] 500 mg PO QIDP PRN 04/05/17 Allergies/Adverse Reactions: No Known Allergies Allergy (Verified 04/05/17 11:59) Review of Systems Constitutional: ABSENT: chills, fever(s), headache(s), weight gain, weight loss Eyes: ABSENT: visual disturbances Ears: ABSENT: hearing changes Cardiovascular: ABSENT: chest pain, dyspnea on exertion, edema, orthropnea, palpitations Respiratory: ABSENT: cough, hemoptysis Gastrointestinal: PRESENT: as per HPI Genitourinary: ABSENT: dysuria, hematuria Musculoskeletal: PRESENT: back pain Integumentary: ABSENT: rash, wounds Neurological: ABSENT: abnormal gait, abnormal speech, confusion, dizziness, focal weakness, syncope Psychiatric: ABSENT: anxiety, depression, homidical ideation, suicidal ideation Endocrine: ABSENT: cold intolerance, heat intolerance, polydipsia, polyuria Hematologic/Lymphatic: ABSENT: easy bleeding, easy bruising Physical Exam Vital Signs: Temp Pulse Resp BP Pulse Ox 97.8 F 61 12 110/61 100 04/05/17 19:20 04/05/17 19:50 04/05/17 19:50 04/05/17 19:50 04/05/17 19:50 Intake & Output 04/04/17 04/05/17 04/06/17 06:59 06:59 06:59 Intake Total 1100 Output Total 595 Balance 505 General appearance: PRESENT: no acute distress, well-developed, well-nourished Head exam: PRESENT: atraumatic, normocephalic Eye exam: PRESENT: conjunctiva pink, EOMI, PERRLA. ABSENT: scleral icterus Ear exam: PRESENT: normal external ear exam Neck exam: ABSENT: carotid bruit, JVD, lymphadenopathy, thyromegaly Respiratory exam: PRESENT: clear to auscultation rufina. ABSENT: rales, rhonchi, wheezes Cardiovascular exam: PRESENT: RRR. ABSENT: diastolic murmur, rubs, systolic murmur GI/Abdominal exam: PRESENT: normal bowel sounds, soft. ABSENT: distended, guarding, mass, organolmegaly, rebound, tenderness Extremities exam: PRESENT: full ROM. ABSENT: calf tenderness, clubbing, pedal edema Neurological exam: PRESENT: alert, awake, oriented to person, oriented to place , oriented to time, oriented to situation, CN II-XII grossly intact. ABSENT: motor sensory deficit Psychiatric exam: PRESENT: appropriate affect, normal mood. ABSENT: homicidal ideation, suicidal ideation Results Impressions: Transvaginal US 04/05/17 13:03 IMPRESSION: Nothing acute other than 2.2 cm left ovarian cyst. IUD is noted. Assessment & Plan - Diagnosis (1) Foreign body accidentally entering other orifice Is this a current diagnosis for this admission?: Yes (2) Foreign body of intestine or colon Qualifiers: Encounter type: initial encounter Qualified Code(s): T18.3XXA - Foreign body in small intestine, initial encounter; T18.4XXA - Foreign body in colon, initial encounter; T18.4XXA - Foreign body in colon, initial encounter Is this a current diagnosis for this admission?: Yes - Plan Summary Plan Summary: The patient will be taken to the OR for an appendectomy for swallowed tongue piercing lodged there and presently causing increasing pain. The fear is that it may cause appendicitis or perforate the appendix.
--- NOTE | 2017-04-05 20:32 | Operative Report ---
Operative Report DATE OF SURGERY: 04/05/17 PREOPERATIVE DIAGNOSIS: Appendiceal Foreign body, possibly accidentally swallowed tongue piercing, causing pain. POSTOPERATIVE DIAGNOSIS: Appendiceal Foreign body, possibly accidentally swallowed tongue piercing, causing pain. OPERATION: Laparoscopic Appendectomy SURGEON: Abi Mckenzie ANESTHESIA: GA TISSUE REMOVED OR ALTERED: appendix COMPLICATIONS: none ESTIMATED BLOOD LOSS: 15 ml INTRAOPERATIVE FINDINGS: non inflammed appendix with metallic-feeling foreign body. PROCEDURE: The patient was brought to the operating room and placed on the operating table. General endotracheal anesthesia was administered and she was positioned supine with the left arm tucked by her side. The abdomen was prepped with chloraprep and sterile drapes laid. A time out was done. Under sterile aseptic conditions, a verres nedle was introduced into the peritoneal cavity at the Burnett's point and pneumoperitoneum was insufflatd to 15mmHg. Access to the peritoneal cavity was gained using the optical bladeless trocar technique with a 10mm at the umbilicus. Two additional ports were placed placed under vision, a 12mm left lower quadrant port and a 5mm midline suprapubic port. The patient was positioned in trendelenberg, right side up and the appendix identified at the base of the cecum. The mesoappendix was divided with the Ligasure device and the appendix transected at its base with an [place] stapler 45mm blue load ( 3.5mm open to 1.5mm stapled height). It was retrieved from the peritoneal cavity in an endobag. Palpation of the specimen revealed the metallic-feeling foreign body within it. There was minor bleeding at the staple line which was controlled with clips. Final inspection did not reveal any bleed or enteric leaks. The umbilical and 12mm left lower quadrant port sites had their fascial layers closed with 0-prolene using the endoclosure device. The pneumoperitoneum was desufflated, all the ports were removed. The skin incisions were closed with 4-0 monocryl, subcuticular stitches. The wounds were infiltrated with local anesthesia, a 1:1 mixture of 1% lidocaine and 0.25% bupivacaine, a total of 20cc. They were cleaned and dressed with dermabond. The patient tolerated the procedure well, she was extubated in the operating room and taken to the PACU in stable condition.
--- NOTE | 2017-04-05 20:43 | PDOC DISCHARGE SUMMARY ---
General - Admit/Disc Date/PCP Admission Date/Primary Care Provider: 04/05/17 16:53 Discharge Date: 04/06/17 - Discharge Diagnosis (1) Foreign body accidentally entering other orifice Is this a current diagnosis for this admission?: Yes (2) Foreign body of intestine or colon Is this a current diagnosis for this admission?: Yes - Additional Information Resuscitation Status: Full Code Discharge Diet: Regular Discharge Activity: No Lifting Over 10 Pounds, No Lifting/Push/Pulling, No tub bath, Walk Frequently Prescriptions: Docusate Sodium [Colace 100 mg Capsule] 100 mg PO BID #30 capsule Oxycodone HCl/Acetaminophen [Percocet 5-325 mg Tablet] 1 tab PO Q6HP PRN #30 tablet PRN Reason: Home Medications: Docusate Sodium [Colace 100 mg Capsule] 100 mg PO BID #30 capsule 04/05/17 Ibuprofen [Motrin 800 mg Tablet] 800 mg PO TIDP PRN 04/05/17 Methocarbamol [Robaxin 500 mg Tablet] 500 mg PO QIDP PRN 04/05/17 Oxycodone HCl/Acetaminophen [Percocet 5-325 mg Tablet] 1 tab PO Q6HP PRN #30 tablet 04/05/17 History of Present Illness History of Present Illness: JAMILA BALL is a 26 year old female with right pelvic pain radiating to the back for 2 months now. She had a CT abdomen that revealed a foreign body in the appendix tip 4 weeks ago. Yesterday night the pain got worse and she presented to the ER. She report no fever, nausea or vomiting. No pathologic adnexal masses on US. She says she had accidentally swallowed a tongue piercing she had after it came loose. Hospital Course Hospital Course: she had a straight-forward laparoscopic appendectomy, is tolerating a diet, no nausea or vomiting, pain is better and is discharged. Physical Exam Vital Signs: Temp Pulse Resp BP Pulse Ox 97.8 F 64 18 107/57 L 97 04/05/17 19:20 04/05/17 20:05 04/05/17 20:05 04/05/17 20:05 04/05/17 20:05 Intake & Output 04/04/17 04/05/17 04/06/17 06:59 06:59 06:59 Intake Total 1100 Output Total 595 Balance 505 General appearance: PRESENT: no acute distress Head exam: PRESENT: atraumatic Eye exam: PRESENT: conjunctiva pink Respiratory exam: PRESENT: clear to auscultation rufina. ABSENT: rales, rhonchi, wheezes Cardiovascular exam: PRESENT: RRR. ABSENT: diastolic murmur, rubs, systolic murmur GI/Abdominal exam: PRESENT: normal bowel sounds, soft, other - incisions are clean, dry, intact. ABSENT: distended, guarding, mass, organolmegaly, rebound, tenderness Neurological exam: PRESENT: alert, awake, oriented to person, oriented to place , oriented to time, oriented to situation, CN II-XII grossly intact. ABSENT: motor sensory deficit Psychiatric exam: PRESENT: appropriate affect, normal mood. ABSENT: homicidal ideation, suicidal ideation Results Impressions: Transvaginal US 04/05/17 13:03 IMPRESSION: Nothing acute other than 2.2 cm left ovarian cyst. IUD is noted. Plan Discharge Plan: discharge home ok to shower in 24 hrs no tub baths x 3 weeks no havy lifting > 10 lbs x 4 weeks F/U in [facility] x 1 week Time Spent: Greater than 30 Minutes
[2017-04-05] MEDS: FENTANYL CITRATE INJ/PF 100 MCG/2 ML AMPUL IV PRN ×9 (20:51→20:55)
[2017-04-05] MEDS: MEPERIDINE HCL/PF INJ 25 MG/1 ML DISP.SYRIN IV PRN ×3 (20:51→20:55)
[2017-04-05] MEDS: PROMETHAZINE HCL INJ 25 MG/1 ML VIAL IV PRN ×3 (20:51→20:55)
[2017-04-05] MEDS: DIPHENHYDRAMINE HCL 50 MG/ML VIAL IV PRN ×3 (20:51→20:55)
[2017-04-05] MEDS: ONDANSETRON HCL INJ/PF 4 MG/2 ML SDV IV PRN (21:25)
[2017-04-05] MEDS: OXYCODONE-ACETAMINOPHEN 5-325 MG TABLET PO PRN (21:25)
[2017-04-05] MEDS ORDERED: ZOLPIDEM TARTRATE 5 MG TABLET PO SCH (22:00)
[2017-04-06] MEDS: OXYCODONE-ACETAMINOPHEN 5-325 MG TABLET PO PRN (06:51)
[2017-04-06] MEDS: ONDANSETRON HCL INJ/PF 4 MG/2 ML SDV IV PRN (06:51)
[2017-04-06] MEDS ORDERED: ENOXAPARIN SODIUM INJ 40 MG/0.4 ML DISP.SYRIN SUBCUT SCH (10:00)
[2017-04-06] MEDS ORDERED: DOCUSATE SODIUM 100 MG CAPSULE PO SCH (10:00)
[2017-04-06 10:40] VITALS: BP 106/67
== END 2017-04-06 12:05 | disposition home or self-care (01) ==
LOC: ER 11:55 → EH 16:53 → INTOOBSV 16:53 → 4N 20:36
PROVIDERS: ATTEND Surgery
PROC: 0DTJ4ZZ Resection of Appendix, Percutaneous Endoscopic Approach (ICD-10-PCS; principal; 2017-04-05 20:30)
DX: K36 Other appendicitis (principal); T18.4XXA Foreign body in colon, initial encounter; X58.XXXA Exposure to other specified factors, initial encounter; N83.202 Unspecified ovarian cyst, left side; F17.200 Nicotine dependence, unspecified, uncomplicated; M54.9 Dorsalgia, unspecified; R35.0 Frequency of micturition; Z97.5 Presence of (intrauterine) contraceptive device
CPT/HCPCS: 99285; 36415; 87210; 85025; 81025; 80048; 81001; 87491; 87591; 88304 ×2; 76830; 93976; 44970; G0378 ×3; J3490 ×5; J2250; J1100; J3010; J2765; J1170; J2405 ×2; S0020; J0696; J2704; 840; J0131

== ENCOUNTER 2018-09-10 13:54 | Emergency (ER) | payer SELFPAY ==
--- NOTE | 2018-09-10 14:25 | ER Document Report ---
ED Medical Screen (RME) - General Chief Complaint: Lower Abdominal Pain Stated Complaint: BACK PAIN Time Seen by Provider: 09/10/18 14:10 Notes: Healthy 28-year-old sexually active female with history of ovarian cysts presents the department with chief complaint of right-sided lower back pain and concerned that her IUD is dislodged. Patient states the back pain is been present since Tuesday and it happened at work while she was not doing anything. Patient is unclear if it was related to intercourse or if it is musculoskeletal in nature. Patient is also concerned that her IUD came dislodged it is unclear if it happened spontaneously but she did notice that shortly after having sex. She is in a monogamous relationship at this time but is still unclear if she has been exposed to STIs. Patient denies any fevers or chills, nausea or vomiting, denies any urinary frequency/dysuria/urgency/hematuria, states she is having vaginal discharge but believes it is normal, not foul-smelling. No other complaints. TRAVEL OUTSIDE OF THE [place] IN LAST 30 DAYS: No - Related Data Allergies/Adverse Reactions: No Known Allergies Allergy (Verified 09/10/18 13:54) Past Medical History - Social History Chew tobacco use (# tins/day): No Frequency of alcohol use: Occasional Drug Abuse: None Renal/ Medical History: Reports: Hx Ovarian Cysts. Denies: Hx Peritoneal Dialysis Past Surgical History: Reports: Hx Appendectomy, Hx Section - Immunizations Immunizations up to date: Yes Hx Diphtheria, Pertussis, Tetanus Vaccination: No History of Influenza Vaccine for 11/2016 - 04/2017 Season: Refused Physical Exam - Vital signs Vitals: Temp Pulse Resp BP Pulse Ox 98.6 F 82 16 147/79 H 99 09/10/18 13:58 09/10/18 13:58 09/10/18 13:58 09/10/18 13:58 09/10/18 13:58 - Notes Notes: PHYSICAL EXAMINATION: Reviewed vital signs and charting by RN GENERAL: Alert, interacts well. No acute distress. HEAD: Normocephalic, atraumatic. EYES: Pupils equal and round. Extraocular movements intact. ENT: Oral mucosa moist, tongue midline. NECK: Full range of motion. Trachea midline. LUNGS: Clear to auscultation bilaterally, no wheezes, rales, or rhonchi. No respiratory distress. HEART: Regular rate and rhythm. No murmur ABDOMEN: Deferred triage EXTREMITIES: Moves all 4 extremities spontaneously. No edema, No cyanosis. PSYCH: Normal affect, normal mood. SKIN: Warm, dry, normal turgor. No rashes or lesions noted. Course - Vital Signs Vital signs: Temp Pulse Resp BP Pulse Ox 98.6 F 82 16 147/79 H 99 09/10/18 13:58 09/10/18 13:58 09/10/18 13:58 09/10/18 13:58 09/10/18 13:58
[2018-09-10 14:52] LABS: APPEARANCE,URINE SLIGHTLY-CLOUDY; BILIRUBIN,URINE NEGATIVE (NEGATIVE); COLOR,URINE YELLOW; GLUCOSE, URINE NEGATIVE (NEGATIVE); KETONES,URINE NEGATIVE (NEGATIVE); LEUKOCYTE ESTERASE,URINE NEGATIVE (NEGATIVE); NITRITE,URINE NEGATIVE (NEGATIVE); PROTEIN,URINE NEGATIVE (NEGATIVE); URINE SPECIFIC GRAVITY 1.012; UROBILINOGEN,URINE NEGATIVE mg/dL (<2.0)
--- NOTE | 2018-09-10 16:31 | RADIOLOGY REPORT (SQ) ---
EXAM DESCRIPTION: U/S NON OB PEL TV W/DOPPLER COMPLETED DATE/TIME: 09/10/2018 3:47 pm REASON FOR STUDY: ?IUD dislodged/ vaginal discharge COMPARISON: 04/05/2017 TECHNIQUE: Dynamic and static grayscale images acquired of the pelvis via transvaginal approach and recorded on PACS. Additional selected color Doppler and spectral images recorded. LIMITATIONS: None. FINDINGS: UTERUS: Contour normal. No mass. ENDOMETRIAL STRIPE: No focal or generalized thickening. No masses. IUD is present in the endometrial cavity. Small volume fluid in the endometrial cavity. CERVIX: No nabothian cysts. Small volume endocervical fluid. RIGHT OVARY AND DOPPLER: Normal size. No worrisome masses. Simple cyst measuring 1.9 cm. Normal art erial vascular flow without evidence for torsion. LEFT OVARY AND DOPPLER: Normal size. No worrisome masses. Simple cyst measuring 1.2 cm. Normal rex rial vascular flow without evidence for torsion. FREE FLUID: None noted. OTHER: No other significant finding. MEASUREMENTS: UTERUS: 2.8 x 4.2 x 5.8 cm. ENDOMETRIAL STRIPE: 5 mm. RIGHT OVARY: 4.3 x 2.3 x 3.8 cm. LEFT OVARY: 3.0 x 2.9 x 3.0 cm. IMPRESSION: 1. IUD is present in the endometrial cavity. Small volume of nonspecific endometrial a nd endocervical fluid. 2. Small bilateral ovarian cysts. TECHNICAL DOCUMENTATION: JOB ID: [id number] [employer]- All Rights Reserved Rev-07/08 Reading location - IP/workstation name: [email or web address]
--- NOTE | 2018-09-10 16:38 | ER Document Report ---
HPI - HPI Patient complains to provider of: pelvic pain Time Seen by Provider: 09/10/18 14:10 Pain Level: 3 - REPRODUCTIVE Reproductive: DENIES: : - DERM Skin Color: Normal Past Medical History - Social History Smoking Status: Current Every Day Smoker Chew tobacco use (# tins/day): No Frequency of alcohol use: Occasional Drug Abuse: None Family History: Arthritis, CAD, DM, Hyperlipidemia, Hypertension. denies: COPD, CVA, Malignancy, Thyroid Disfunction Patient has suicidal ideation: No Patient has homicidal ideation: No Renal/ Medical History: Reports: Hx Ovarian Cysts. Denies: Hx Peritoneal Dialysis Past Surgical History: Reports: Hx Appendectomy, Hx Section - Immunizations Immunizations up to date: Yes Hx Diphtheria, Pertussis, Tetanus Vaccination: No Vertical Provider Document - INFECTION CONTROL TRAVEL OUTSIDE OF THE [place] IN LAST 30 DAYS: No Course - Vital Signs Vital signs: Temp Pulse Resp BP Pulse Ox 98.6 F 82 16 147/79 H 99 09/10/18 13:58 09/10/18 13:58 09/10/18 13:58 09/10/18 13:58 09/10/18 13:58 Discharge - Discharge Clinical Impression: Low back pain, Pelvic pain Ovarian cyst Qualifiers: Laterality: bilateral Qualified Code(s): N83.201 - Unspecified ovarian cyst, right side; N83.202 - Unspecified ovarian cyst, left side Condition: Good Disposition: HOME, SELF-CARE Instructions: Ovarian Cyst ([facility]) Additional Instructions: Follow-up with PCP/obgyn 1 to 2 days. Return for any worsening symptoms. tylenol or motrin for any pain or fever. drink plenty of fluids. warm compresses to the area Forms: Return to Work
[2018-09-10] MEDS ORDERED: ACETAMINOPHEN 325 MG TABLET PO ONE (17:23)
[2018-09-10 17:30] LABS: T.VAGINALIS (WET MOUNT) NO TRICHOMONAS SEEN; WBCS (WET MOUNT) FEW WBCS SEEN; YEAST (WET MOUNT) NO YEAST SEEN
[2018-09-10 18:49] VITALS: BP 145/78
[2018-09-10 19:00] LABS: CHLAM PCR NOT DETECTED (NOT DETECT)
== END 2018-09-10 18:48 | disposition home or self-care (01) ==
LOC: ER 13:54
DX: N83.201 Unspecified ovarian cyst, right side (principal); N83.202 Unspecified ovarian cyst, left side; M54.5 Low back pain; R10.2 Pelvic and perineal pain; F17.200 Nicotine dependence, unspecified, uncomplicated
CPT/HCPCS: 76830; 81001; 81025; 87210; 87491; 87591; 93976; 99284